=== PATIENT | female | born 1980 | race Asian ===

== ENCOUNTER 2021-06-12 13:56 | Outpatient (RCR) | payer OTHER | END 2021-09-01 | disposition home or self-care (01) | LOC: WSOH | DX: M25.512 Pain in left shoulder (principal); Y93.89 Activity, other specified; Y92.63 Factory as the place of occurrence of the external cause | CPT/HCPCS: J3301 ==

== ENCOUNTER 2022-01-08 15:41 | Outpatient (RCR) | payer OTHER | END 2022-02-06 | disposition home or self-care (01) | LOC: WSOH | DX: Z48.02 Encounter for removal of sutures (principal); S61.412A Laceration without foreign body of left hand, initial encounter; F32.A Depression, unspecified; I10 Essential (primary) hypertension; Y99.0 Civilian activity done for income or pay ==